=== PATIENT | male | born 1990 | race Caucasian/White ===

== ENCOUNTER 2025-01-28 20:55 | Emergency (ER) | payer OTHER ==
--- NOTE | 2025-01-28 20:58 | ERPHSYRPT ---
- History of Present Illness Time Seen by Provider: 01/28/25 20:58 Source: patient, family Exam Limitations: no limitations Physician History: This is a 34-year-old white male patient who presents with right earache that has been present for 2 days and not improving with topical otic antibiotic solution. Patient states the pain started Saturday and worsened Saturday. He went to the [facility] and they gave him a prescription for the topical otic antibiotics. Despite using plain Tylenol and ibuprofen, his symptoms are not improving. He has pain in the right ear and right jaw. He has no problem hearing. Timing/Duration: abrupt onset, days (2) Severity: moderate ENT Location: ear (R) Prearrival Treatment: over the counter meds, prescription meds Modifying Factors: Improves With: nothing Associated Symptoms: ear pain (R), No fever, No ear drainage, No facial pain/swelling, No headache, No hearing loss, No ringing of ears Home Medications: Omeprazole 40 mg PO DAILY 01/28/25 [History] armodafiniL 150 mg PO DAILY 01/28/25 [History] Travel Risk - International Travel Have you traveled outside of the country in past 3 weeks: No - Emerging Infectious Disease Are you exhibiting symptoms associated with any current EIDs: No - Review of Systems Constitutional: No Symptoms Eyes: No Symptoms Ears, Nose, & Throat: Ear Pain (Right), No Ear Discharge, No Hearing Changes, No Tinnitus Respiratory: No Symptoms Cardiac: No Symptoms Abdominal/Gastrointestinal: No Symptoms Genitourinary Symptoms: No Symptoms Musculoskeletal: No Symptoms Skin: No Symptoms Neurological: No Symptoms Psychological: No Symptoms Endocrine: No Symptoms Hematologic/Lymphatic: No Symptoms Immunological/Allergic: No Symptoms All Other Systems: Reviewed and Negative - Past Medical History Pertinent Past Medical History: Yes - Nursing Vital Signs Nursing Vital Signs: Initial Vital Signs Temperature 98.4 F 01/28/25 20:59 Pulse Rate 95 H 01/28/25 20:59 Respiratory Rate 18 01/28/25 20:59 Blood Pressure 158/98 01/28/25 20:59 O2 Sat by Pulse Oximetry 98 01/28/25 20:59 Pain Scale Pain Intensity 10 - Physical Exam General Appearance: mild distress, alert Eye Exam: bilateral eye: normal inspection, PERRL, EOMI, abnormal EOM Ear Exam: right ear: erythema, TM red, left ear: canal normal, TM normal, bilateral ear: auricle normal Nasal Exam: normal inspection Throat Exam: normal, pharynx normal, moist mucus membranes, No dental tenderness, No excessive drooling, No foreign body Neck Exam: normal inspection, non-tender, supple, full range of motion Cardiovascular/Respiratory Exam: chest non-tender, no respiratory distress Abdominal Exam: non-tender Neurologic Exam: alert, oriented x 3, cooperative, concrete form setter II-XII nml as tested, normal mood/affect, nml cerebellar function, nml station & gait, sensation nml Skin Exam: normal color, warm, dry SpO2 Interpretation: normal O2 Delivery: Room Air - Course Nursing assessment & vital signs reviewed: Yes Ordered Tests: Medication Summary Discontinued Medications Generic Name Dose Route Start Last Admin Trade Name Freq PRN Reason Stop Dose Admin Hydrocodone Bitart/Acetaminophen 2 tab 01/28/25 21:37 01/28/25 22:03 Hydrocodone/Apap 5/325 1 Tab Tablet PO 01/28/25 21:38 2 tab SENT HOME W/ PATIENT ONE Administration Hydrocodone Bitart/Acetaminophen Confirm 01/28/25 21:43 Hydrocodone/Apap 5/325 1 Tab Tablet Administered 01/28/25 21:44 Dose 2 tab .ROUTE .STK-MED ONE Ceftriaxone Sodium 1,000 mg 01/28/25 21:36 01/28/25 21:55 Ceftriaxone Sodium 1000 Mg Inj Vial IM 01/28/25 21:37 1,000 mg STAT ONE Administration Ceftriaxone Sodium Confirm 01/28/25 21:43 Ceftriaxone Sodium 1000 Mg Inj Vial Administered 01/28/25 21:44 Dose 1,000 mg .ROUTE .STK-MED ONE Methylprednisolone Sodium 0 mg 01/28/25 21:37 01/28/25 21:55 Succinate 125 mg/ Sterile IM 01/28/25 21:38 125 mg Water 2 ml STAT ONE Administration Methylprednisolone Sodium Succinate Confirm 01/28/25 21:43 Methylprednis Sod Succ 125 Mg/2 Ml Vial Administered 01/28/25 21:44 Dose 125 mg .ROUTE .STK-MED ONE Sterile Water Confirm 01/28/25 21:42 Water For Injection,Sterile 10 Ml Vial Administered 01/28/25 21:43 Dose 10 ml IJ .STK-MED ONE - Progress Progress: unchanged Progress Note: 01/28/25 22:24 My medical decision making and the assignment of low complexity of this patient's medical issue today is based on review of the patient's past medical history, reviewed the patient's medication list, reviewed the patient's drug allergy list, history of present illness and physical findings on examination. The workup in this patient does not necessitate radiographic or laboratory studies. Differential diagnosis includes was not limited to perforated eardrum, otitis media, otitis externa Counseled pt/family regarding: diagnosis, need for follow-up Medical Desision Making - Risk of complications Low Risk: Low risk of morbidity from additional dx testing or treatment The pt has a mod risk of morbidity or mortality based on: Need for prescription drug management - Departure Departure Disposition: Home Clinical Impression: Right otitis media Condition: Stable Critical Care Time: No Referrals: WYATT ROBLES NP [Primary Care Provider, UNKNOWN] - Follow up/PCP as directed Additional Instructions: Once you complete the hydrocodone/acetaminophen medication, add Tylenol 650 mg orally every 4 hours while awake. Stop your eardrops. Take your antibiotics and steroids as prescribed. Call your prescribing provider tomorrow, 01/29/2025, to make arrangements for follow-up appointment for further evaluation management.
[2025-01-28 21:14] VITALS: TEMP 98.4
[2025-01-28] MEDS ORDERED: Sterile H2O 10 ml IJ ONE (21:42)
[2025-01-28] MEDS ORDERED: NORCO 5/325 MG ONE (21:43)
[2025-01-28] MEDS ORDERED: Rocephin 1000 MG INJ ONE (21:43)
[2025-01-28] MEDS: solu-MEDROL 125 MG, Sterile H2O 10 ml 2 ML IM ONE (21:55)
[2025-01-28] MEDS: Rocephin 1000 MG INJ IM ONE (21:55)
[2025-01-28] MEDS: NORCO 5/325 MG PO ONE (22:03)
[2025-01-28 22:39] VITALS: BP 134/81; PULSE 82; RESP 14; O2SAT 95
== END 2025-01-28 22:55 | disposition home or self-care (01) ==
LOC: ED 20:55
DX: H66.91 Otitis media, unspecified, right ear (principal); H92.01 Otalgia, right ear; Z79.899 Other long term (current) drug therapy